=== PATIENT | female | born 1995 | race Caucasian/White ===

== ENCOUNTER 2018-05-28 10:01 | Emergency (ER) | payer MEDICAID ==
[2018-05-28] MEDS ORDERED: KETOROLAC TROMETHAMINE 60 MG/2 ML SDV IM ONE (10:15)
[2018-05-28] MEDS ORDERED: DIPHENHYDRAMINE HCL 50 MG/ML VIAL IM ONE (10:15)
[2018-05-28] MEDS ORDERED: PROMETHAZINE HCL INJ 50 MG/1 ML VIAL IM PRN (10:16)
--- NOTE | 2018-05-28 10:19 | ER Document Report ---
ED Medical Screen (RME) - General Chief Complaint: Headache Stated Complaint: HEADACHE, NECK/BACK PAIN Time Seen by Provider: 05/28/18 10:14 Mode of Arrival: Ambulatory Information source: Patient TRAVEL OUTSIDE OF THE [place] IN LAST 30 DAYS: No - HPI Patient complains to provider of: migraine Onset: Other - pt with prolonged migraine CRUZ for the past 10 days with blurred dvision and memory loss. Has been seen by PCP and neurology without improvement - Related Data Allergies/Adverse Reactions: doxycycline Allergy (Verified 05/28/18 10:02) Past Medical History - Social History Chew tobacco use (# tins/day): No Frequency of alcohol use: None Drug Abuse: None - Past Medical History Cardiac Medical History: Reports: Hx Hypertension Neurological Medical History: Reports: Hx Migraine Endocrine Medical History: Reports: Hx Diabetes Mellitus Type 2 Renal/ Medical History: Denies: Hx Peritoneal Dialysis Physical Exam - Vital signs Vitals: Temp Pulse Resp BP Pulse Ox 98.4 F 88 20 145/98 H 99 05/28/18 10:07 05/28/18 10:07 05/28/18 10:07 05/28/18 10:07 05/28/18 10:07 Course - Vital Signs Vital signs: Temp Pulse Resp BP Pulse Ox 98.4 F 88 20 145/98 H 99 05/28/18 10:07 05/28/18 10:07 05/28/18 10:07 05/28/18 10:07 05/28/18 10:07
[2018-05-28] MEDS ORDERED: DIPHENHYDRAMINE HCL 50 MG/ML VIAL IV ONE ×2 (10:20→13:40)
[2018-05-28] MEDS ORDERED: KETOROLAC TROMETHAMINE INJ/PF 30 MG/1 ML SDV IV ONE (10:20)
[2018-05-28] MEDS ORDERED: METOCLOPRAMIDE HCL INJ/PF 10 MG/2 ML SDV IV ONE (10:21)
[2018-05-28 11:08] LABS: ABSOLUTE BASOPHILS # (AUTO) 0.1 10^3/uL (0.0-0.2); ABSOLUTE EOSINOPHILS # (AUTO) 0.4 10^3/uL (0.0-0.6); ABSOLUTE LYMPHOCYTES (AUTO) 3.1 10^3/uL (0.5-4.7); ABSOLUTE MONOCYTES (AUTO) 0.4 10^3/uL (0.1-1.4); ABSOLUTE NEUT (AUTO) 8.1 10^3/uL (1.7-8.2); BASOPHILS % (AUTO) 0.7 % (0-2); EOSINOPHILS % (AUTO) 3.2 % (0-6); HEMATOCRIT 44.7 % (36.0-47.0); HEMOGLOBIN 15.4 g/dL (12.0-15.5); LYMPHOCYTES % (AUTO) 25.8 % (13-45); MEAN CORPUSCULAR HEMOGLOBIN 30.2 pg (27.0-33.4); MEAN CORPUSCULAR HGB CONC 34.3 g/dL (32.0-36.0); MEAN CORPUSCULAR VOLUME 88 fl (80-97); MONOCYTES % (AUTO) 3.6 % (3-13); PLATELET COUNT 293 10^3/uL (150-450); RED BLOOD COUNT 5.09 10^6/uL (3.72-5.28); RED CELL DISTRIBUTION WIDTH 12.3 % (11.5-14.0); SEGMENTED NEUTROPHILS % (AUTO) 66.7 % (42-78); TOTAL CELLS COUNTED % (AUTO) 100 %; WHITE BLOOD COUNT 12.2 10^3/uL (4.0-10.5)
--- NOTE | 2018-05-28 11:11 | RADIOLOGY REPORT (SQ) ---
EXAM DESCRIPTION: CT HEAD WITHOUT COMPLETED DATE/TIME: 05/28/2018 11:00 am REASON FOR STUDY: CRUZ COMPARISON: None. TECHNIQUE: Axial images acquired through the brain without intravenous contrast. Images reviewed wi th bone, brain and subdural windows. Images stored on PACS. All CT scanners at this facility use dose modulation, iterative reconstruction, and/or weight based d osing when appropriate to reduce radiation dose to as low as reasonably achievable (ALARA). [facility]: Dose Right [facility]: CareDose [facility]: Dose Right [facility]: Teradose 4D [facility]: Fusebill RADIATION DOSE: CT Rad equipment meets quality standard of care and radiation dose reduction techniq ues were employed. CTDIvol: 48.6 mGy. DLP: 979 mGy-cm. mGy. LIMITATIONS: None. FINDINGS: VENTRICLES: Normal size and contour. CEREBRUM: No masses. No hemorrhage. No midline shift. No evidence for acute infarction. Normal gra y/white matter differentiation. No areas of low density in the white matter. CEREBELLUM: No masses. No hemorrhage. No alteration of density. No evidence for acute infarction. EXTRAAXIAL SPACES: No fluid collections. No masses. ORBITS AND GLOBE: No intra- or extraconal masses. Normal contour of globe without masses. CALVARIUM: No fracture. PARANASAL SINUSES: No fluid or mucosal thickening. SOFT TISSUES: No mass or hematoma. OTHER: No other significant finding. IMPRESSION: NORMAL BRAIN CT WITHOUT CONTRAST. EVIDENCE OF ACUTE STROKE: NO. COMMENT: Quality ID # [id number]: Final reports with documentation of one or more dose reduction techniques (e.g., Automated exposure control, adjustment of the mA and/or kV according to patient size, use of iterative reconstruction technique) TECHNICAL DOCUMENTATION: JOB ID: [id number] [employer]- All Rights Reserved Reading location - IP/workstation name: [email or web address]
[2018-05-28 11:28] LABS: ALANINE AMINOTRANSFERASE 45 U/L (9-52); ALBUMIN 4.5 g/dL (3.5-5.0); ALKALINE PHOSPHATASE 88 U/L (38-126); ANION GAP 16 (5-19); ASPARTATE AMINO TRANSFERASE 40 U/L (14-36); BILIRUBIN,DIRECT 0.4 mg/dL (0.0-0.4); BILIRUBIN,TOTAL 0.5 mg/dL (0.2-1.3); BLOOD UREA NITROGEN 11 mg/dL (7-20); CALCIUM 9.9 mg/dL (8.4-10.2); CARBON DIOXIDE 25 mmol/L (22-30); CHLORIDE 101 mmol/L (98-107); GLUCOSE 182 mg/dL (75-110); POTASSIUM 4.7 mmol/L (3.6-5.0); SODIUM 141.9 mmol/L (137-145); TOTAL PROTEIN 7.5 g/dL (6.3-8.2)
[2018-05-28 12:46] LABS: APPEARANCE,URINE CLOUDY; BILIRUBIN,URINE NEGATIVE (NEGATIVE); COLOR,URINE YELLOW; GLUCOSE, URINE NEGATIVE (NEGATIVE); KETONES,URINE NEGATIVE (NEGATIVE); LEUKOCYTE ESTERASE,URINE TRACE (NEGATIVE); NITRITE,URINE NEGATIVE (NEGATIVE); PROTEIN,URINE NEGATIVE (NEGATIVE); URINE SPECIFIC GRAVITY 1.012; UROBILINOGEN,URINE NEGATIVE mg/dL (<2.0)
--- NOTE | 2018-05-28 13:39 | ER Document Report ---
ED Headache - General Mode of Arrival: Ambulatory Information source: Patient TRAVEL OUTSIDE OF THE [place] IN LAST 30 DAYS: No <SHRAVAN DAVENPORT - Last Filed: 05/28/18 16:23> <FRANCO LYLE - Last Filed: 05/28/18 16:26> - General Chief Complaint: Headache Stated Complaint: HEADACHE, NECK/BACK PAIN Time Seen by Provider: 05/28/18 10:14 Notes: 22-year-old female who presents to the emergency department today with complaints of a headache for a week and half. Patient states she has a history of migraines and this is similar to her past migraines however this is the longest one has ever lasted. Patient states that she was seen by neurology today who "did nothing because he did not have her records". Patient states she has had associated blurred vision, vomiting, and chills. Patient denies fevers or neck pain. Patient is quite concerned with a "dent" on her head as well. (SHRAVAN DAVENPORT) - Related Data Allergies/Adverse Reactions: doxycycline Allergy (Verified 05/28/18 10:02) Past Medical History - General Information source: Patient - Social History Smoking Status: Current Every Day Smoker Cigarette use (# per day): Yes Chew tobacco use (# tins/day): No Frequency of alcohol use: None Drug Abuse: None Lives with: Family Family History: Reviewed & Not Pertinent Patient has suicidal ideation: No Patient has homicidal ideation: No - Past Medical History Cardiac Medical History: Reports: Hx Hypertension Neurological Medical History: Reports: Hx Migraine Endocrine Medical History: Reports: Hx Diabetes Mellitus Type 2 Surgical Hx: Negative <SHRAVAN DAVENPORT - Last Filed: 05/28/18 16:23> Review of Systems - Review of Systems Constitutional: See HPI, Chills. denies: Fever EENT: See HPI, Blurred vision Cardiovascular: No symptoms reported Respiratory: No symptoms reported Gastrointestinal: See HPI, Vomiting Genitourinary: No symptoms reported Female Genitourinary: No symptoms reported Musculoskeletal: No symptoms reported Skin: No symptoms reported Hematologic/Lymphatic: No symptoms reported Neurological/Psychological: See HPI, Headaches -: Yes All other systems reviewed and negative <SHRAVAN DAVENPORT - Last Filed: 05/28/18 16:23> Physical Exam <SHRAVAN DAVENPORT - Last Filed: 05/28/18 16:23> <FRANCO LYLE - Last Filed: 05/28/18 16:26> - Vital signs Vitals: Temp Pulse Resp BP Pulse Ox 98.4 F 88 20 145/98 H 99 05/28/18 10:07 05/28/18 10:07 05/28/18 10:07 05/28/18 10:07 05/28/18 10:07 - Notes Notes: PHYSICAL EXAM GENERAL: Alert, interacts well. Obese. Sleeping comfortably, alert and oriented when awakened. Appears uncomfortable after awakening. HEAD: Normocephalic, atraumatic. Indentation over the frontal suture which appears to be developmental. EYES: Pupils equal, round, and reactive to light. Extraocular movements intact. Red reflex intact bilaterally. ENT: Oral mucosa moist, tongue midline. NECK: Full range of motion, able to flex and extend the neck. Supple. Trachea midline. LUNGS: Clear to auscultation bilaterally, no wheezes, rales, or rhonchi. No respiratory distress. HEART: Regular rate and rhythm. No murmurs, gallops, or rubs. ABDOMEN: Soft, non-tender. Non-distended. Bowel sounds present in all 4 quadrants. No guarding, rigidity, or rebound. EXTREMITIES: Moves all 4 extremities spontaneously. No edema, radial and dorsalis pedis pulses 2/4 bilaterally. No cyanosis. NEUROLOGICAL: Alert and oriented x3. Normal speech. Complains of photophobia. Cranial nerves II through XII grossly intact bilaterally. Finger to nose test and heel-garcia testing intact bilaterally. PSYCH: Normal affect, normal mood. SKIN: Warm, dry, normal turgor. No rashes or lesions noted. (SHRAVAN DAVENPORT) Course - Laboratory Result Diagrams: 05/28/18 10:29 05/28/18 10:29 <SHRAVAN DAVENPORT - Last Filed: 05/28/18 16:23> - Laboratory Result Diagrams: 05/28/18 10:29 05/28/18 10:29 <FRANCO LYLE - Last Filed: 05/28/18 16:26> - Re-evaluation Re-evalutation: 05/28/18 15:10 CBC shows leukocytosis of 12.2, CMP shows elevated glucose at 182 otherwise unremarkable, urinalysis shows trace leukocyte esterase, 21 screens epithelial cells, consistent with contamination, test negative. CT scan of the head negative does not show any acute or subacute process. Given the fact that this headache has been going on constantly for the past week and a half is unlikely to represent meningitis. Also the patient had just seen her neurologist prior to coming to the emergency department today. We will proceed with symptomatic treatment. Patient was initially treated with Toradol, Reglan and Benadryl, this had no significant impact on her headache. Given the intractable nature of her headache we will try Benadryl, Haldol and Decadron to prevent rebound headache as well as fluids. Patient was given all of these medications and her headache has improved significantly however she stated that 20 minutes after getting the medication she felt like she was having her heart racing and like her heart was ready to beat out of her chest. Nursing called me into the room and by this time the patient was sitting up in bed feeling much better and had no further complaints. Patient has no evidence of allergic reaction, no erythema, no hives. Patient will be discharged to home. 05/28/18 15:19 Rechecked once more, feels much better, no further complaints of palpitations. Headache is down to a 2 out of 10. (FRANCO LYLE) - Vital Signs Vital signs: Temp Pulse Resp BP Pulse Ox 98.6 F 81 12 141/70 H 98 05/28/18 15:51 05/28/18 15:51 05/28/18 15:51 05/28/18 15:51 05/28/18 15:51 - Laboratory Laboratory results interpreted by me: 05/28/18 05/28/18 05/28/18 10:29 10:29 12:12 WBC 12.2 H Glucose 182 H AST 40 H Ur Leukocyte Esterase TRACE H Discharge <SHRAVAN DAVENPORT - Last Filed: 05/28/18 16:23> <FRANCO LYLE - Last Filed: 05/28/18 16:26> - Discharge Clinical Impression: Intractable migraine Qualifiers: Migraine type: without aura Status migrainosus presence: with status migrainosus Qualified Code(s): G43.011 - Migraine without aura, intractable, with status migrainosus Condition: Stable Disposition: HOME, SELF-CARE Additional Instructions: Migraine Headache The physician feels that your symptoms are due to a migraine attack. Migraines are caused by changes in the blood vessels of the head. Arteries go into spasm, often causing warning symptoms that a headache may begin soon. As the spasm goes away, the vessels dilate and throb, causing the pounding pain of a migraine headache. Migraines often cause nausea and vomiting. The treatment of headaches varies with severity and cause of pain. Not all headaches need pain shots -- in fact, there is evidence that using narcotics for headaches may make them worse in the long run. The physician will determine the therapy that's in your best interest for this particular headache. Medications are available that may prevent migraines, or stop them as they first occur. If one medication is not helpful, try another. If migraines are frequent, be patient -- follow the doctor's recommendations. Call the physician if you are worsening, or if new symptoms arise. Forms: Return to Work Referrals: VAUGHN SCHULER MD [Primary Care Provider] - Follow up in 3-5 days Scribe Attestation: 05/28/18 16:26 I personally performed the services described in the documentation, reviewed and edited the documentation which was dictated to the scribe in my presence, and it accurately records my words and actions. (FRANCO LYLE) Scribe Documentation - Scribe Written by Darwin:: Darwin Ferrari, 05/28/2018 1622 acting as scribe for :: Leno <SHRAVAN DAVENPORT - Last Filed: 05/28/18 16:23>
[2018-05-28] MEDS ORDERED: DEXAMETHASONE SOD PHOS INJ 10 MG/1 ML VIAL IV ONE (13:40)
[2018-05-28] MEDS ORDERED: NORMAL SALINE 1000 ML 1,000 ML IV ONE (13:40)
[2018-05-28] MEDS ORDERED: HALOPERIDOL LACTATE INJ 5 MG/1 ML VIAL IV ONE (13:40)
[2018-05-28 15:53] VITALS: BP 141/70
== END 2018-05-28 15:55 | disposition home or self-care (01) ==
LOC: ER 10:01
DX: G43.011 Migraine without aura, intractable, with status migrainosus (principal); H53.8 Other visual disturbances; R11.10 Vomiting, unspecified; R68.83 Chills (without fever); E66.9 Obesity, unspecified; H53.149 Visual discomfort, unspecified; D72.829 Elevated white blood cell count, unspecified; E11.65 Type 2 diabetes mellitus with hyperglycemia; F17.210 Nicotine dependence, cigarettes, uncomplicated; I10 Essential (primary) hypertension
CPT/HCPCS: 96376; 99284; 96361; 96374; 96375; 36415; 85025; 81025; 80053; 81001; 70450; J1200; J1630; J1885; J2765; J7030; J1100